=== PATIENT | male | born 1955 | race Caucasian/White ===

== ENCOUNTER 2016-09-25 14:21 | Emergency (ER) | payer BC ==
[~2016-09-25] VITALS: Ht 170.2 cm; Wt 71.8 kg
[~2016-09-25 14:21] MED LIST: Ecotrin PO; Lipitor PO; NO HOME MEDS
[2016-09-25 15:18] LABS: BASOPHIL COUNT 0.1 K/uL (0-0.1); EOSINOPHIL (%) 2.6 % (0-5); EOSINOPHIL COUNT 0.2 K/uL (0-0.3); IMMATURE GRANULOCYTE (%) 0.3 % (0.0-0.7); INSTRUMENT ABS NEUTROPHIL CT 4.8 K/uL; LYMPHOCYTE COUNT 0.9 K/uL (1.0-2.8); MCH 28.3 PG (29.0-34.0); MCHC 32.4 G/DL (30.0-36.0); MCV 87.2 FL (86-99); MEAN PLAT.VOLUME 10.9 uM^3 (9.0-12.4); MONOCYTE (%) 8.3 % (3-12); MONOCYTE COUNT 0.5 K/uL (0-0.8); NEUTROPHIL (%) 73.7 % (45-76); NEUTROPHIL COUNT 4.8 K/uL (1.8-6.4); PLATELET COUNT 143 K/uL (156-360); RBC DIS.WIDTH-CV 12.9 % (11.8-14.6); RBC DIS.WIDTH-SD 41.4 % (39-53); WHITE BLOOD COUNT 6.5 K/uL (4.1-10.2)
[2016-09-25 15:27] LABS: CHLORIDE 106 mEq/L (99-109); SODIUM 138 mEq/L (136-147)
[2016-09-25 15:30] LABS: GLUCOSE 125 mg/dL (70-99)
[2016-09-25 15:31] LABS: ANION GAP 7 MEQ/L (2-14)
[2016-09-25 15:32] LABS: TOTAL BILIRUBIN 0.4 mg/dL (0.0-1.0)
[2016-09-25 15:33] LABS: ALKALINE PHOSPHATASE 51 IU/L (3-129); GFR ESTIMATE (CALCULATED) > 59 mL/min/
[2016-09-25 15:34] LABS: UREA NITROGEN (BUN) 22 mg/dL (9-23)
[2016-09-25 15:40] LABS: TROP-I INTERPRETATION NEGATIVE; TROPONIN-I < 0.01 ng/mL (0.0-0.30)
[2016-09-25] MEDS ORDERED: ANTIVERT25 MG PO (17:39)
[2016-09-25] MEDS ORDERED: ZOFRAN ODT4 MG PO (17:39)
[2016-09-25] MEDS ORDERED: VALIUM2 MG PO (17:39)
[2016-09-25 18:16] VITALS: BP 111/69
== END 2016-09-25 18:22 | disposition home or self-care (01) ==
LOC: EME 14:21
PROVIDERS: Emergency Medicine
DX: R42 Dizziness and giddiness (principal); R11.0 Nausea; Z79.82 Long term (current) use of aspirin
CPT/HCPCS: 71020; 80053; 84484; 85025; 93005; 99281; 99284; J2405; J3360; J7030